=== PATIENT | female | born 1985 | race Caucasian/White ===

== ENCOUNTER 2017-09-24 05:39 | Inpatient (IN) | payer OTHER ==
[2017-09-24] VITALS (27 sets, daily range): BP systolic 97–137; BP diastolic 53–78; PULSE 0–100; RESP 12–21; Ht 160 cm; Wt 69.7 kg
[~2017-09-24] VITALS: Ht 160 cm; Wt 69.7 kg
[~2017-09-24 05:39] MED LIST: ERYT60SO TOP; IBUP800T25 PO; LORA1TAB54 PO
[2017-09-24] MEDS ORDERED: LACTATED RINGER'S 1,000 ML IV* SCH (06:00)
[2017-09-24] MEDS ORDERED: CEFAZOLIN 2 GM/50 ML (PMX) 50 ML IVPB SCH (06:00)
[2017-09-24] MEDS ORDERED: ROCURONIUM 50 MG INJ ONE (07:05)
[2017-09-24] MEDS ORDERED: FENTAnyl 50 MCG/ML VIAL ONE (07:05)
[2017-09-24] MEDS ORDERED: SUCCINYLCHOLINE CHLORIDE 100 MG/5 ML SYG IV ONE (07:05)
[2017-09-24] MEDS ORDERED: ONDANSETRON 4 MG INJ ONE (07:05)
[2017-09-24] MEDS ORDERED: PROPOFOL 20 ML ONE (07:05)
[2017-09-24] MEDS ORDERED: METOCLOPRAMIDE 10 MG INJ ONE (07:06)
[2017-09-24] MEDS ORDERED: CEFAZOLIN 1 GM INJ ONE (07:06)
[2017-09-24] MEDS ORDERED: ONDANSETRON 4 MG INJ IV PRN ×3 (07:30→08:30)
[2017-09-24] MEDS ORDERED: FENTAnyl 50 MCG/ML VIAL IV PRN ×2 (07:30)
[2017-09-24] MEDS ORDERED: HYDROmorphONE (0.2 MG/ML) 10ML SYG IV PRN ×2 (07:30)
[2017-09-24] MEDS ORDERED: MEPERIDINE 25 MG INJ IV PRN (07:30)
[2017-09-24] MEDS ORDERED: NALOXONE (0.4 MG/ML) INJ IV PRN (07:30)
[2017-09-24] MEDS ORDERED: DIPHENHYDRAMINE 50 MG INJ IV PRN (07:30)
[2017-09-24] MEDS ORDERED: HYDROCODONE/APAP (5/325) TAB PO PRN ×2 (07:30→08:30)
[2017-09-24] MEDS ORDERED: KETOROLAC 30 MG INJ IV PRN (07:30)
--- NOTE | 2017-09-24 08:10 | HP ---
Date/Time of Note Date/Time of Note DATE: 09/24/17 TIME: 08:07 Assessment/Plan VTE Prophylaxis VTE Prophylaxis Intervention: SCD's Lines/Catheters IV Catheter Type (from Nrs): Peripheral IV HPI/ROS Admit Date/Time Admit Date/Time Sep 24, 2017 at 05:39 Hx of Present Illness patient with persistent ovarian cyst has been scheduled for Exploratory laparotomy and cystectomy PMH: none PSH: None Allergies: NKDA social history: denies smoking, drinking or doing drugs Medications: none Cardiovascular: denies chest pain, palpitations or lightheadedness Gastrointestinal: Denies nausea, vomiting, blood in stool Genitourinary: Denies hematuria, dysuria, or flank pain Musculoskeletal: Denies joint pain or swelling Skin: Denies rash, erythema or laceration Neuro: Denies confusion, seizure, headache or diziness Endocrine: Denies excessive urination or drinking PHYSICAL EXAMINATION: VITAL SIGNS: Stable. She is afebrile, in no acute distress. HEENT: No thyromegaly. HEART: Regular rate and rhythm. LUNGS: Clear to auscultation bilaterally. ABDOMEN: Soft, gravid. CERVIX: Not examined. EXTREMITIES: No edema. Assesment: persistent ovarian cyst Plan: Exploratory laparotomy ovarian cystectomy PMH/Family/Social Social History Smoking Status: Never smoker Exam/Review of Systems Vital Signs Vitals Vital Signs Date Time Temp Pulse Resp B/P Pulse Ox O2 Delivery O2 Flow Rate FiO2 09/24/17 06:52 98.4 96 18 137/78 98 Room Air Medications Medications Current Medications Lactated Ringer's 1,000 ml @ 125 mls/hr Q8H IV* ; Start 09/24/17 at 06:00; Stop 09/24/17 at 13:59 Cefazolin Sodium/ Dextrose (Ancef 2 Gm/50 ml (Pmx)) 50 ml @ 100 mls/hr PREOP IVPB ; Start 09/24/17 at 06:00; Stop 09/24/17 at 16:00 Naloxone HCl (Narcan) 0.2 mg PRN PRN IV DECREASED REPIRATORY RATE; Start 09/24 at 07:30 Hydromorphone HCl (Dilaudid ONLINE JOURNALIST) Q4PCA IV ; Start 09/24/17 at 07:30 Acetaminophen/ Hydrocodone Bitart ([place] (5/325)) 1 tab Q4H PRN PO PAIN LEVEL 1 -5; Start 09/24/17 at 07:30 Acetaminophen/ Hydrocodone Bitart ([place] (5/325)) 2 tab Q4H PRN PO PAIN LEVEL 6 -10; Start 09/24/17 at 07:30 Ketorolac Tromethamine (Toradol) 30 mg Q6H PRN IV PAIN UNRELIEVED BY IV NARCOTIC; Start 09/24/17 at 07:30; Stop 09/27/17 at 07:29 Ondansetron HCl (Zofran Inj) 4 mg Q6H PRN IV NAUSEA AND/OR VOMITING; Start at 07:30 Diphenhydramine HCl (Benadryl) 25 mg Q6H PRN IV ITCHING; Start 09/24/17 at 07: 30 Miscellaneous Information 1. Discontinue ONLINE JOURNALIST... ONLINE JOURNALIST IV ; Start 09/24/17 at 07: 30 ROSALBA BAKER MD Sep 24, 2017 08:10
[2017-09-24] MEDS ORDERED: morphine 2 MG INJ IV PRN (08:30)
[2017-09-24] MEDS ORDERED: METOCLOPRAMIDE 10 MG INJ IV PRN (08:30)
[2017-09-24] MEDS ORDERED: IBUPROFEN 600 MG TAB PO PRN (08:30)
--- NOTE | 2017-09-24 09:04 | OPR ---
Date/Time of Note Date/Time of Note DATE: 09/24/17 TIME: 08:57 Operative Report Procedure Date: Sep 24, 2017 Preoperative Diagnosis Pelvic pain, ovarian cyst Postoperative Diagnosis Pelvic pain, ovarian cyst Operation/Procedure Performed Exploratory laparotomy, Cystectomy Surgeon see signature line [employer] Cage Supervisor none Anesthesia Type: general Estimated Blood Loss: 50 - 100 ml's Transfusion none Specimen Right ovarian cyst wall Grafts/Implants none Tubes/Drains hernandez cath Complications none Pt Condition Post Procedure: stable Disposition: PACU Procedure Description FINDINGS: Right ovarian cyst 4 cm INFORMED CONSENT: Please see my preop H and P for the consent process. DESCRIPTION OF PROCEDURE: She was taken to the operating room. General anesthesia was induced. She was prepped and draped in the usual sterile fashion. Vaginal prep and abdominal prep was done. Hernandez catheter was inserted. She was in the supine position. After she was prepped and draped, surgical time out was done, surgery and patient was identified. Then, we proceeded and made a Pfannenstiel skin incision. Incision was taken down in layers. The fascia was cut, undermined, from the underlying muscle using sharp and blunt dissection. All the bleeders were cauterized. The cyst wall was cut using knife and the cyst was and dissected off the ovary using sharp and blunt dissection. Cyst ruptured during dissection. 3- 0 Vicryl was used to stop the bleeding and reapproximate the ovary. there was no bleeding from the surgical site. The peritoneum was closed using 2-0 Vicryl. The rectus muscles reapproximated using 2-0 Vicryl. Rectus muscles, rectus fascia were evaluated, all bleeders cauterized. Rectus fascia was closed using #1 Vicryl. Subcutaneous tissue was cleaned, irrigated, all bleeders cauterized and closed using 3-0 plain and then the skin closed using 4-0 Monocryl in a subcuticular fashion. All counts were correct. The patient tolerated the procedure well. ROSALBA BAKER MD Sep 24, 2017 09:04
[2017-09-24] MEDS: HYDROmorphONE (0.2 MG/ML) 10ML SYG IV PRN ×3 (09:15→09:30)
[2017-09-24] MEDS: HYDROmorphONE 0.2 MG/ML PCA IV SCH (09:22)
[2017-09-24] MEDS: LACTATED RINGER'S 1,000 ML IV SCH ×2 (13:57→18:14)
[2017-09-25 00:15] VITALS: BP 106/66; RESP 20
[2017-09-25] MEDS: LACTATED RINGER'S 1,000 ML IV SCH ×2 (01:16→09:53)
[2017-09-25 04:00] VITALS: BP 118/57; PULSE 80; RESP 17
[2017-09-25 05:15] LABS: BASOPHILS % 0.2 % (0.0-2.0); EOSINOPHILS % 0.3 % (0.0-7.0); HEMATOCRIT 35.8 % (37.0-47.0); LYMPHOCYTES # 1.1 10^3/ul (0.8-2.9); LYMPHOCYTES % 10.5 % (15.0-51.0); MEAN CORPUSCULAR HEMOGLOBIN 33.9 pg (29.0-33.0); MEAN CORPUSCULAR HGB CONC 33.5 g/dl (32.0-37.0); MEAN CORPUSCULAR VOLUME 101.1 fl (82.0-101.0); MEAN PLATELET VOLUME 12.7 fl (7.4-10.4); MONOCYTE # 0.6 10^3/ul (0.3-0.9); MONOCYTES % 5.9 % (0.0-11.0); NEUTROPHIL # 8.5 10^3/ul (1.6-7.5); NEUTROPHILS % 82.8 % (39.0-77.0); PLATELET COUNT 158 10^3/UL (140-415); RED BLOOD COUNT 3.54 10^6/ul (4.20-5.40); RED CELL DISTRIBUTION WIDTH 11.3 % (11.5-14.5); WHITE BLOOD COUNT 10.3 10^3/ul (4.8-10.8)
[2017-09-25] MEDS: HYDROmorphONE 0.2 MG/ML PCA IV SCH (06:22)
[2017-09-25 07:32] VITALS: BP 112/60; PULSE 86; RESP 14
[2017-09-25] MEDS: HYDROCODONE/APAP (5/325) TAB PO PRN ×2 (09:47→13:33)
[2017-09-25 14:49] VITALS: BP 116/66; RESP 18
--- NOTE | 2017-09-25 15:50 | DS ---
Date/Time of Note Date/Time of Note DATE: 09/25/17 TIME: 15:46 Discharge Summary Admission/Discharge Info Admit Date/Time Sep 24, 2017 at 05:39 Discharge Date/Time 09/25/2017 Discharge Diagnosis s/p right cystectomy Patient Condition: Good Consults none Procedures s/p right cystectomy Hx of Present Illness patient with persistent ovarian cyst underwent Exploratory laparotomy and cystectomy Hospital Course surgery was done without any problems. post operatively she had flatus, denies nausea or vomiting or fever and she is ambulating well and good pain control on oral pain meds. she remained afebrile and VSS Abdomen is soft and appropriate tenderness Incision covered with Stereostrips and no sign of infection Home Meds Discontinued Scripts Loratadine/Pseudoephedrine* (Claritin-D* 12 Hr) 5-120 Mg Tab.er.12h, 1 TAB PO Q12, #20 TAB.SA Prov:MARS PARDO PA-C 05/23/16 Ibuprofen* (Motrin*) 800 Mg Tab, 800 MG PO Q6H Y for PAIN AND OR ELEVATED TEMP, #30 TAB Prov:MARS PARDO PA-C 05/23/16 Erythromycin* (Erythromycin* Topical) 2%-60 Ml Solution, 1 APPLIC TOP BID, #1 BOTTLE Prov:IVANIA LUCAS NP 02/15/16 Follow-up Plan [address] Ortega Primary Care Provider [facility] Time spent on discharge: < 30 minutes Pending Labs Laboratory Tests Test 09/25/17 04:40 White Blood Count 10.310^3/ul (4.8-10.8) Red Blood Count 3.5410^6/ul (4.20-5.40) Hemoglobin 12.0g/dl (12.0-16.0) Hematocrit 35.8% (37.0-47.0) Mean Corpuscular Volume 101.1fl (82.0-101.0) Mean Corpuscular Hemoglobin 33.9pg (29.0-33.0) Mean Corpuscular Hemoglobin Concent 33.5g/dl (32.0-37.0) Red Cell Distribution Width 11.3% (11.5-14.5) Platelet Count 05200^3/UL (140-415) Mean Platelet Volume 12.7fl (7.4-10.4) Neutrophils % 82.8% (39.0-77.0) Lymphocytes % 10.5% (15.0-51.0) Monocytes % 5.9% (0.0-11.0) Eosinophils % 0.3% (0.0-7.0) Basophils % 0.2% (0.0-2.0) Nucleated Red Blood Cells % 0.0/100WBC (0.0-0.0) Neutrophils # 8.510^3/ul (1.6-7.5) Lymphocytes # 1.110^3/ul (0.8-2.9) Monocytes # 0.610^3/ul (0.3-0.9) Eosinophils # 0.010^3/ul (0.0-0.5) Basophils # 0.010^3/ul (0.0-0.1) Nucleated Red Blood Cells # 0.010^3/ul (0.0-0.0) ROSALBA ORTEGA MD Sep 25, 2017 15:50
== END 2017-09-25 17:05 | disposition home or self-care (01) | DRG 743 ==
LOC: REC 05:39 → EDSTATUS 07:30 → MS1 10:45
PROVIDERS: ADMIT Specialist; ATTEND Specialist
PROC: 0UB00ZZ Excision of Right Ovary, Open Approach (ICD-10-PCS; principal; 2017-09-24 07:30)
DX: N83.201 Unspecified ovarian cyst, right side (principal); R10.2 Pelvic and perineal pain
CPT/HCPCS: 85025; 87086; 88305; J0690; J1170; J1885; J2175; J2405; J2765; J3010; J7120

== ENCOUNTER 2019-04-07 19:17 | Emergency (ER) | payer OTHER ==
[~2019-04-07] VITALS: Ht 162.6 cm; Wt 71.6 kg
[2019-04-07 19:18] VITALS: Ht 162.6 cm; Wt 71.6 kg
[2019-04-07] MEDS ORDERED: IBUP800T48 PO (20:04)
[2019-04-07 20:15] VITALS: BP 121/67; PULSE 77; RESP 20
--- NOTE | 2019-04-07 20:29 | ERD ---
ER Documentation Chief Complaint Chief Complaint RIGHT ARM-ELBO INJ X3WKS; STILL PAINFUL AND TINGLING, CMS INTACT HPI History of Present Illness: 33-year-old female who denies a past medical history coming in today with complaint of right upper extremity pain. Patient reports a elbow injury approximately 3 weeks ago in which a doorknob hit her "funny bone". Patient reports that she is having sharp shooting pains to her forearm going towards her wrist. Patient denies pain at her elbow. Patient denies any other associated symptoms At home pharmacological/nonpharmacological treatment for symptoms: Denies Denies social concerns; Denies recent foreign travel ROS All systems reviewed and are negative except as per history of present illness. Medications Home Meds Active Scripts Ibuprofen* (Motrin*) 800 Mg Tab, 800 MG PO Q6H PRN for PAIN AND OR ELEVATED TEMP, #30 TAB Prov:GIPSONLENA NP 04/07/19 Allergies Allergies: Coded Allergies: No Known Allergy (Unverified , 09/24/17) PMhx/Soc History of Surgery: Yes (MASS REMOVED LEFT BUTTOCK) Anesthesia Reaction: No Hx Neurological Disorder: No Hx Respiratory Disorders: No Hx Cardiac Disorders: No Hx Psychiatric Problems: No Hx Miscellaneous Medical Probl: No Hx Alcohol Use: No Hx Substance Use: No Hx Tobacco Use: No Smoking Status: Never smoker FmHx Family History: No diabetes, No coronary disease Physical Exam Vitals Vital Signs Date Temp Pulse Resp B/P (MAP) Pulse Ox O2 O2 Flow FiO2 Time Delivery Rate 04/07/19 98.4 77 20 121/67 99 Room Air 20:15 (85) 04/07/19 98.4 78 19 125/69 97 19:18 (87) Physical Exam Const: No acute distress Head: Atraumatic Eyes: Normal Conjunctiva ENT: Normal External Ears, Nose and Mouth. Neck: Full range of motion. No meningismus. Resp: Clear to auscultation bilaterally Cardio: Regular rate and rhythm, no murmurs Abd: Soft, non tender, non distended. Normal bowel sounds Skin: No petechiae or rashes Back: No midline or flank tenderness Ext: No cyanosis, or edema; right upper extremity: No tenderness to palpation to right elbow, no tenderness to palpation to forearm, wrist, hand. Neurovascularly intact. Neur: Awake and alert Psych: Normal Mood and Affect Results 24 hrs Current Medications Medications Dose Sig/Armin Start Time Status Last (Trade) Ordered Route PRN Stop Time Admin Dose Reason Admin 10 mg ONCE ONCE 04/07/19 04/07/19 Dexamethasone IM 20:30 20:05 (Decadron) 04/07/19 20:31 Procedures/MDM ED course includes a thorough examination and history. Medications: Dexamethasone Imaging: Labs: Low suspicion for life-threatening medical emergency. Otherwise healthy patient presenting with constellation of symptoms likely representing uncomplicated nerve pain secondary to injury of right upper extremity as characterized by history, physical exam findings. Patient reassessment 2010: Patient medicated by nursing staff. Patient verbalizes understanding of plan of care as well as discharge instructions. patient hemodynamically stable. No respiratory distress, otherwise relatively well appearing and nontoxic. Disposition given. Patient educated on diagnoses, prescriptions, follow-up care, return precautions. Strict return precautions given for worsening condition; questions answered discharge. Disposition for discharge with followup in 2 days with PCP/clinic. Departure Diagnosis: Primary Impression: Nerve pain Additional Impression: Injury of upper extremity Encounter type: initial encounter Laterality: right Qualified Codes: S49.91XA - Unspecified injury of right shoulder and upper arm, initial encounter Condition: Stable Patient Instructions: Fracture, Upper Extremity Referrals: COMMUNITY CLINICS YOU HAVE RECEIVED A MEDICAL SCREENING EXAM AND THE RESULTS INDICATE THAT YOU DO NOT HAVE A CONDITION THAT REQUIRES URGENT TREATMENT IN THE EMERGENCY DEPARTMENT. FURTHER EVALUATION AND TREATMENT OF YOUR CONDITION CAN WAIT UNTIL YOU ARE SEEN IN YOUR DOCTORS OFFICE WITHIN THE NEXT 1-2 DAYS. IT IS YOUR RESPONSIBILITY TO MAKE AN APPOINTMENT FOR FOLOW-UP CARE. IF YOU HAVE A PRIMARY DOCTOR --you should call your primary doctor and schedule an appointment IF YOU DO NOT HAVE A PRIMARY DOCTOR YOU CAN CALL OUR PHYSICIAN REFERRAL HOTLINE AT IF YOU CAN NOT AFFORD TO SEE A PHYSICIAN YOU CAN CHOSE FROM THE FOLLOWING [facility] [address] [facility] [address] [facility] [facility] [address] [facility] [address] [facility] [address] [facility] [facility]. [address] [facility]. [facility] YOU HAVE RECEIVED A MEDICAL SCREENING EXAM AND THE RESULTS INDICATE THAT YOU DO NOT HAVE A CONDITION THAT REQUIRES URGENT TREATMENT IN THE EMERGENCY DEPARTMENT. FURTHER EVALUATION AND TREATMENT OF YOUR CONDITION CAN WAIT UNTIL YOU ARE SEEN IN YOUR DOCTORS OFFICE WITHIN THE NEXT 1-2 DAYS. IT IS YOUR RESPONSIBILITY TO MAKE AN APPOINTMENT FOR FOLOW-UP CARE. IF YOU HAVE A PRIMARY DOCTOR --you should call your primary doctor and schedule and appointment IF YOU DO NOT HAVE A PRIMARY DOCTOR YOU CAN CALL OUR PHYSICIAN REFERRAL HOTLINE AT . IF YOU CAN NOT AFFORD TO SEE A PHYSICIAN YOU CAN CHOSE FROM THE FOLLOWING [facility]: [facility] [address] [place] [address] [address] [place] [address] [facility] [address] [place] [address] Additional Instructions: Thank you very much for allowing us to participate in your care. Your health and safety is our top priority at [facility]. It is important to read all discharge instructions and education provided in your discharge packet. Call your primary care doctor TOMORROW for an appointment during the next 2-4 days and bring all the information and medications prescribed. Have prescriptions filled and follow precisely the directions on the label. --Ibuprofen is a medication that will help with pain/inflammation. At the dosage of 600 to 800 mg, this will help with inflammation/swelling. Take this medication as prescribed. If the symptoms get worse and your provider is unavailable, return to the Emergency Department immediately. LENA GIPSON NP Apr 07, 2019 20:29
[2019-04-07] MEDS ORDERED: DEXAMETHASONE 10 MG/ML 1 ML INJ IM ONE (20:30)
== END 2019-04-07 20:17 | disposition home or self-care (01) ==
LOC: FTE 19:17
DX: S49.91XA Unspecified injury of right shoulder and upper arm, initial encounter (principal); M79.2 Neuralgia and neuritis, unspecified; W22.8XXA Striking against or struck by other objects, initial encounter; Y92.9 Unspecified place or not applicable
CPT/HCPCS: 96372; J1100; Z7502